=== PATIENT | female | born 1970 | race Two or more races ===

== ENCOUNTER → 2023-07-11 06:16 | Day surgery (SDC) | payer BC, SELFPAY ==
[2023-07-04 11:05] VITALS: BMI 35.0
[2023-07-04 11:29] LABS: % Basophils 1.1 % (0-2); % Eosinophils 4.2 % (0-6); % Immature Granulocytes 1.1 % (0-0.5); % Lymphocytes 36.9 % (20.5-51.1); % Monocytes 5.7 % (1.7-9.3); Absolute Basophils 0.1 10^3/uL (0-0.2); Absolute Eosinophils 0.3 10^3/uL (0-0.7); Absolute Immature Granulocytes 0.1 10^3/uL (0-0.05); Absolute Lymphocytes 2.6 10^3/uL (1.2-3.4); Absolute Monocytes 0.4 10^3/uL (0.1-0.6); Absolute Neutrophils 3.7 10^3/uL (1.4-6.5); Hematocrit 44.7 % (37.0-47.0); Hemoglobin 15.3 g/dL (12.0-16.0); Mean Corp Hgb Conc. 34.2 g/dL (33.0-37.0); Mean Corpuscular Hgb 30.4 pg (27.0-31.0); Mean Corpuscular Volume 88.7 fL (81.0-99.0); Mean Platelet Volume 9.5 fL (7.4-10.4); Nucleated Red Blood Cells % 0 %; Platelet Count 244 10^3/uL (130-400); Red Blood Cell Count 5.04 10^6/uL (4.20-5.40); Red Cell Dist. Width 12.8 % (11.5-14.5); White Blood Cell Count 7.2 10^3/uL (4.8-10.8)
[2023-07-04 12:11] LABS: ALT (SGPT) 23 U/L (0-35); AST (SGOT) 23 U/L (14-36); Albumin 4.5 g/dl (3.5-5.0); Alkaline Phosphatase 95 U/L (38-126); Blood Urea Nitrogen 14 mg/dl (7-17); Carbon Dioxide 27 mmol/L (22-30); Chloride 106 mmol/L (98-107); Estimated Creatinine Clearance 119 ml/min; Glucose 114 mg/dl (70-99); Potassium 4.4 mmol/L (3.5-5.1); Sodium 139 mmol/L (135-145); Total Bilirubin 0.3 mg/dl (0.2-1.3); eGFR > 60.00
[2023-07-11] VITALS (12 sets, daily range): BP systolic 138–173; BP diastolic 77–122
[2023-07-11 09:23] LABS: ACT-LR - POC 75 Seconds (116-155)
[2023-07-11 09:28] LABS: ACT-LR - POC 277 Seconds (116-155)
[2023-07-11 09:33] LABS: ACT-LR - POC 287 Seconds (116-155)
[2023-07-11 09:45] LABS: ACT-LR - POC 316 Seconds (116-155)
[2023-07-11 10:06] LABS: ACT-LR - POC 351 Seconds (116-155)
[2023-07-11 10:33] LABS: ACT-LR - POC 393 Seconds (116-155)
[2023-07-11 11:11] LABS: ACT-LR - POC 150 Seconds (116-155)
--- NOTE | 2023-07-11 12:15 | ITS.CL.ABL ---
General Cargo Clerk - Ablation
Ablation
Procedure Report:
Primary Launderette Attendant: Ayan Fung MD
Procedure Date: 07/11/2023
Patient History:
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
See H&P for complete history.
Indication:
Symptomatic PVCs, intolerant to calcium channel lenore, limited beta-lenore due to bradycardia
Procedure
X PVC/VT Ablation procedure (64056) -- includes 3D mapping
X+LA/CS pacing (97405)
X+Intracardiac ultrasound (04212)
X+Transseptal (69623)
X+IV drug (84590)
[ ]+Other Arrhythmia (57947)
Method
NPO status confirmed. Grounding pad applied. Defibrillator pads applied. Continuous surface ECG, pulse oximetry, and blood pressure were monitored. Procedure was performed under general anesthesia, with anesthesia services.
Both groins were clipped, prepped with Chloraprep, and draped in sterile fashion. Time out was called. Local anesthesia administered. The right and left femoral veins were accessed for catheter placement, using ultrasound guidance, micro-puncture
needle/wire, and modified seldinger technique. 3 sheaths were placed (left femoral vein: 9 Fr upsized to 11.5 Fr steerable Agilis; right femoral vein: 10 Fr, 7 Fr).
The following catheters were used:
X Tacticath SE (D/F-curve) ablation catheter
X Viewflex 9Fr ICE catheter
X Inquiry decapolar 6Fr diagnostic catheter
[ ] 6Fr quadrapolar diagnostic catheter
X HD Grid multielectrode mapping catheter
ICE and 3D mapping was performed to identify relevant cardiac structures. A careful 3D map was created to assess for regions of low-voltage and abnormal electrogram signals (late potentials, fractionation). There is no evidence of pericardial
effusion at the initiation of the case, throughout monitoring during the case, and at the termination of the case. See synopsis for details
Catheter-based radiofrequency ablation was performed with a target power was 20-30 Smith. See synopsis for details
At procedure conclusion, ICE was used to rule out pericardial effusion. Hemostasis was obtained with [id number] stitch for bilateral groin sites and manual pressure. Protamine was used for reversal.
Estimated Blood Loss
5-10 mL
Complications
None
Procedure Synopsis:
Access was obtained as reported above and decapolar catheter was advanced to the coronary sinus and intracardiac ultrasound was advanced in the right atrium. Heparin was given and maintained with an ACT 300 to 400 seconds while HD grid was used.
The HD grid was advanced through the short 9 Slov[place] femoral venous sheath into the RVOT. PVC mapping was performed with patient under sedation and with use of isoproterenol. PVC was localized to the RVOT (septal underneath the pulmonic valve). By
electroanatomic mapping, earliest activation was -27 ms early with a QS pattern on unipolar EGM recording. Following thorough mapping in the RVOT, HD grid was removed and the short 9 Slov[place] femoral venous sheath was exchanged for an 11.5 [place]
steerable Agilis sheath. TactiCath SE D/F was advanced into the RVOT to the spot of earliest activation. Again, PVC was noted to be -27 ms early with QS morphology in unipolar EGM. Pace map at this spot yielded 95% match to clinical PVC by
electroanatomic mapping and a 12/12 morphology match on twelve-lead ECG. Radiofrequency ablation was utilized at this location at 20 to 30 W targeted power with careful monitoring of temperature and impedance. A brief run of AIVR was noted during
ablation at targeted location early into ablation lesion with termination during ablation. Following this ablation lesion, no further PVCs or AIVR were noted. Patient maintained AV synchrony and conduction throughout the entirety of the case.
Following completion of ablation lesions, sedation was reduced and isoproterenol was once more initiated. PVCs were not seen during this time. Isoproterenol was stopped and sedation again remained off for a duration of 30 minutes. During this
time, no PVCs were noted. Baseline electrophysiology study/measurements were performed. Catheters were removed, final images from intracardiac ultrasound demonstrated no evidence of pericardial effusion, hemostasis was achieved as noted above.
Fluoroscopy: 1.6 minutes; 4.76 mGy
Contrast used: 0 cc
Baseline Intervals:
Rhythm: Sinus rhythm
ID: 172 ms
QRS: 111 ms
QT: 440 ms
QTc: 426 ms
Post-Procedure Intervals:
ID: 159 ms
QRS: 98 ms
QT: 417 ms
QTc: 430 ms
AVWB: 370 ms
Recommendations
1. Bedrest with straight-leg precautions as ordered
2. Anticipate same-day discharge if patient meeting clinical metrics
3. Resume home medications as indicated
4. Continue flecainide and metoprolol until seen by Dr. Fung in office (recommend 3 months followed by weaning of drug)
5. Routine post procedure care
Charly Brumfield DO
Clinical Cardiac [facility]
cc: Ayan Fung MD; Leo Chawla MD
[2023-07-11] MEDS: ZOFRAN 4 MG IV (15:03)
== END | disposition home or self-care (01) ==
LOC: CATH 06:16
PROVIDERS: ATTENDING PHYSICIAN Internal Medicine Cardiovascular Disease; FAMILY PHYSICIAN Family Medicine; OTHER PHYSICIAN Internal Medicine Interventional Cardiology
DX: I49.3 Ventricular premature depolarization (principal); I10 Essential (primary) hypertension; E66.9 Obesity, unspecified; Z68.35 Body mass index [BMI] 35.0-35.9, adult; Z86.14 Personal history of Methicillin resistant Staphylococcus aureus infection; G47.33 Obstructive sleep apnea (adult) (pediatric); Z79.899 Other long term (current) drug therapy; Z91.030 Bee allergy status; Z88.2 Allergy status to sulfonamides; Z87.891 Personal history of nicotine dependence; R06.02 Shortness of breath; R42 Dizziness and giddiness; R55 Syncope and collapse; R00.1 Bradycardia, unspecified
CPT/HCPCS: 93662; C1732; C1894; C1766; C2630; C1892; 36415; 76937; 80053; 83735; 85025; 85347; 86850; 86900; 86901; 93005; 93462; 93623; 93654; C1759